=== PATIENT | male | born 1975 | race Caucasian/White ===

== ENCOUNTER 2019-05-04 16:28 | Inpatient (IN) | payer OTHER ==
[~2019-05-04] VITALS: Ht 172.7 cm; Wt 75.7 kg
--- NOTE | ~2019-05-04 | OP ---
[facility] [address] [place] [address] OPERATIVE REPORT Name: CORDELL CAMEJO Room: [place] [address] ADM IN .R.#: [id number] Admission: 05/04/19 Attend Phys: Lynette Parry MD Discharge: Date of : 79 Report #: [id number] THIS REPORT FOR: //name// CC: [facility] physician/PCP Lynette Parry DATE OF SERVICE: 05/04/2019 PREOPERATIVE DIAGNOSES: Right scrotal infection with sepsis. POSTOPERATIVE DIAGNOSES: Right scrotal infection with sepsis with severe epididymal orchitis. PROCEDURE PERFORMED: Right scrotal exploration with right scrotal orchiectomy. SURGEON: Tex Navarro M.D. ESTIMATED BLOOD LOSS: None. DRAINS: Emir drain to the dependent portion of the scrotum. ANESTHETIC: General. BLOOD LOSS: Negligible. SPECIMEN: Testicle and attached cord to pathology. STATEMENT OF MEDICAL INDICATIONS: This is a 43-year-old male who has a 4-day history of scrotal swelling that got dramatically worse today, spiked a temperature to 103.6, has white blood cell count of 20,000. Ultrasound shows decreased blood flow, possible torsion. The patient has been apprised the options of management, elected to proceed with right scrotal exploration and all likelihood, right scrotal orchiectomy. He understands in advance that there is at least a 98% chance this will require orchiectomy and he wants whatever procedure would get him back to activity the fastest and understands this would be orchiectomy. Risks including bleeding, infection, scrotal hematoma hypogonadism were discussed. DESCRIPTION OF PROCEDURE: The patient was taken to the operating room and placed under general anesthesia, prepped and draped in sterile fashion in the supine position. Right hemiscrotal incision was made. There was marked edema of the soft tissues. This was carried down to where there was a reactive hydrocele, which did not appear to be infected. The testis was delivered into the wound. The tail of the epididymis was markedly enlarged and edematous and inflamed. There was blue discoloration of the testis. Therefore, [place] [address] OPERATIVE REPORT Name: CORDELL CAMEJO Room: [address] IN [facility]#: [id number] Admission: 05/04/19 Attend Phys: Lynette Parry MD Discharge: Date of : 79 Report #: [id number] was made to proceed with orchiectomy. There was inflammatory reaction of the testis to the scrotal wall. This was all released using the Bovie. The cord was then doubly clamped and divided. The vas was taken in 1 pedicle of 0 Prolene and doubly ligated and then the vessels were done similarly with a double ligation of 0 Prolene. Careful search for hemostasis was made and obtained. A [place] drain was brought out through the dependent portion of the scrotum and anchored in place using a chromic suture. The scrotum was then closed in 2 layers, dartos and tunica vaginalis were closed with a running 3-0 chromic suture. The wound was irrigated and then the skin was closed using a running 3-0 chromic suture. This concluded the procedure. Sterile dressings were placed and the patient returned to recovery room in satisfactory condition. His sepsis will be managed by the hospitalist. By: 2039 [id number] Navarro MD /syed
[2019-05-04 16:45] VITALS: BP 126/85
[2019-05-04 17:29] LABS: HEMATOCRIT 45.3 % (42.0-52.0); HEMOGLOBIN 16.1 gm/dL (14.0-18.0); MCH 35.8 pg (26.0-34.0); MCHC 35.5 g/dL (28.0-37.0); MPV 7.4 fl. (7.2-11.1); NUCLEATED RBCS 0 /100WBC; PLATELET COUNT* 251 thou/uL (150-400); RBC 4.49 mil/uL (4.50-6.00); RDW-CV 14.2 % (10.5-14.5); WBC 20.7 thou/uL (4.0-11.0)
[2019-05-04 17:38] LABS: CALCIUM 8.4 mg/dL (8.5-10.1); POTASSIUM 3.1 mmol/L (3.5-5.1)
--- NOTE | 2019-05-04 17:41 | NUR ---
TAKEN TO ULTRA SOUND
[2019-05-04 17:43] LABS: ALBUMIN 3.3 g/dL (3.4-5.0); TOTAL BILIRUBIN 0.9 mg/dL (<0.1-1.0); TOTAL PROTEIN 7.6 g/dL (6.4-8.2)
[2019-05-04 17:43] LABS: URINE BILIRUBIN NEGATIVE (Negative); URINE BLOOD NEGATIVE (Negative); URINE COLOR YELLOW; URINE GLUCOSE-RANDOM NEGATIVE (Negative); URINE KETONES NEGATIVE (Negative); URINE LEUKOCYTES-REFLEX TRACE (Negative); URINE NITRITE-REFLEX NEGATIVE (Negative); URINE PROTEIN NEGATIVE (Negative); URINE UROBILINOGEN 0.2 E.U./dl (0.2-1.0)
[2019-05-04 17:44] LABS: URINE CLARITY HAZY
[2019-05-04 17:52] LABS: SQUAMOUS 4-10 Moderate /LPF (0-3); URINE WBC-REFLEX 0-5 Rare /HPF (0-5)
[2019-05-04 17:53] LABS: BACTERIA-REFLEX None Seen /HPF (None Seen); CASTS None Seen /LPF (None Seen); CRYSTALS None Seen /LPF (None Seen); URINE RBC None Seen /HPF (0-2)
[2019-05-04 17:57] LABS: ABSOLUTE LYMPHOCYTES 0.2 thou/uL (0.8-5.3); ABSOLUTE NEUTROPHILS 20.5 thou/uL (1.6-8.1); PLATELET ESTIMATE ADEQUATE
[2019-05-04 19:09] VITALS: BP 104/64
[2019-05-04 23:06] VITALS: BP 98/70
[2019-05-05] VITALS (7 sets, daily range): BP systolic 93–113; BP diastolic 57–75
--- NOTE | 2019-05-05 04:47 | NUR ---
PATIENT ARRIVED TO UNIT AT 2145 FROM PACU. ADMISSION HISTORY AND ASSESSMENT COMPLETED AND CHARTED. VSS ON 4 LITERS 02. FLUIDS AND ANTIBIOTICS INFUSED ORDERED. PAIN MINIMAL AND MANAGED WITH MORPHINE. PATIENT UP TO THE BATHROOM AND VOIDING WIHTOUT ISSUE. DRESSING AND SCROTAL SUPPORT ARE IN PLACE WITH NO DRAINAGE. FATUMA DRAIN IN PLACE WITH MINIMAL DRAINAGE. NO OTHER COMPLAINTS THIS SHIFT. CALL LIGHT PLACED IN REACH. HOURLY ROUNDS COMPLETED. WILL CONTINUE WITH PLAN OF CARE.
[2019-05-05 05:25] LABS: HEMATOCRIT 39.4 % (42.0-52.0); MCH 35.4 pg (26.0-34.0); MCHC 34.6 g/dL (28.0-37.0); MCV 102.5 fL (80.0-100.0); MPV 7.1 fl. (7.2-11.1); RBC 3.85 mil/uL (4.50-6.00); RDW-CV 14.2 % (10.5-14.5); WBC 30.7 thou/uL (4.0-11.0)
[2019-05-05 05:37] LABS: HEMOGLOBIN 13.6 gm/dL (14.0-18.0)
[2019-05-05 05:41] LABS: CALCIUM 7.2 mg/dL (8.5-10.1); CREATININE 0.9 mg/dL (0.6-1.3); MAGNESIUM 1.4 mg/dL (1.8-2.4); POTASSIUM 3.6 mmol/L (3.5-5.1)
--- NOTE | 2019-05-05 08:32 | NUR ---
ASSUMED CARE OF PT THIS AM AROUND 0715- NUCLEAR RADIATION ENGINEER IN PLACE ORDERED, TRACING SR- UPON ASSESSMENT PT NOTED TO BE RESTING IN BED, AT SIDE- PT A&O X4- CONTINENT OF B/B- SBA WITH TRANSFERS FOR SAFETY- LCTA, RESP EVEN AND UN-LABORED, VSS, O2 SAT 93% ON RA- ABD SOFT/ROUND/NON-TENDER, BS X4 QUADS- LAST BM REPORTED THIS AM- RIGHT TEST NOTED WITH GAUZE IN PLACE, MINIMAL DRAINAGE NOTED, STRAP SUPPORT IN PLACE TO JOCK AREA INDICATED-PIN MINERVA DRAIN NOTED TO HAVE BEEN REMOVED THIS AM AT 0830 PER WITH GAUZE CHANGED- MG NOTED AT 1.4 THIS AM AND IS CURRENLTY BEING REPLACED PER PROTOCOL PER IV- IV NOTED TO RIGHT AC INTACT, IVF INFUSSING PRESCIBED- POOR PO INTAKE NOTED THIS AM R/T DECREASED APPETITE PER PT- PT EXPRESSES WISHES TO D/C TO HOME THIS SHIFT- MINIMAL DISCOMFORT REPORTED PER PT TO SCROTUM- CALL LIGHT AND PERSONAL BELONGINGS WITH IN REACH- PT MAKES NEEDS KNOWN- ALL NEEDS MET AT THIS TIME-WCTM
[2019-05-05] MEDS ORDERED: NORCO 5-325 TA1 EAC2 PO (09:02)
[2019-05-05] MEDS ORDERED: KEFLEX500 M1 PO (09:06)
[2019-05-05 12:16] LABS: INFLUENZA A ANTIGEN Negative (Negative); INFLUENZA B ANTIGEN Negative (Negative)
--- NOTE | 2019-05-06 04:36 | NUR ---
ASSUMED CARE OF PATIENT AT APPROX 1930. ALERT AND ORIENTED X4. ASSESSMENT COMPLETED AND CHARTED. VSS ON ROOM AIR. NO COMPLAINTS OF PAIN THROUGHOUT THE NIGHT. ANTIBIOTICS INFUSED ORDERED. PATIENT SLEEPING MOST OF THE NIGHT. UP AD JOSE A TO USE THE BATHROOM. CALL LIGHT IS WITHIN REACH. HOURLY ROUNDING COMPLETED. WILL CONTINUE WITH PLAN OF CARE.
[2019-05-06 05:29] LABS: HEMATOCRIT 41.3 % (42.0-52.0); HEMOGLOBIN 14.3 gm/dL (14.0-18.0); MCH 35.5 pg (26.0-34.0); MCHC 34.5 g/dL (28.0-37.0); MCV 102.9 fL (80.0-100.0); MPV 7.8 fl. (7.2-11.1); RBC 4.02 mil/uL (4.50-6.00); RDW-CV 14.6 % (10.5-14.5); WBC 28.4 thou/uL (4.0-11.0)
[2019-05-06 05:49] LABS: CALCIUM 7.8 mg/dL (8.5-10.1); CREATININE 0.8 mg/dL (0.6-1.3); MAGNESIUM 2.3 mg/dL (1.8-2.4)
[2019-05-06 05:58] LABS: POTASSIUM 2.7 mmol/L (3.5-5.1)
[2019-05-06] MEDS ORDERED: NORCO 5-325 TA1 EAC2 PO (09:31)
[2019-05-06] MEDS ORDERED: LEVAQUIN 500 M500 M3 PO (09:31)
[2019-05-06] MEDS ORDERED: KEFLEX500 M1 PO (09:37)
[2019-05-06 09:38] VITALS: BP 144/91
--- NOTE | 2019-05-06 10:08 | NUR ---
ASSUMED CARE OF PT THIS AM AROUND 07- W/C STATUS IN PLACE INDICATED- UPON ASSESSMENT PT NOTED TO BE RESTING IN BED, AT SIDE- PT A&O X4- CONTINENT OF B/B- LCTA, RESP EVEN AND UN-LABORED- VSS, O2 SAT 92% ON RA- ABD SOFT/ROUND/NON-TENDER, BS X4 QUADS- IV NOTED TO RIGHT AC INTACT- IV ABT D/C WUITH PO STARTED AND 1ST DOSE GIVEN PRESCIBED- PRN IBUPROPHEN GIVEN THIS AM AT 0949 FOR C/O PAIN TO TESTIE- K+ CURRENLTY BEING REPLACED PPER PROTOCOL- D/C ORDERS NOTED- PT MAKES NEEDS KNOWN- ALL NEEDS MET AT THIS TIME-WCTM
--- NOTE | 2019-05-07 14:09 | EKG ---
[place] [address] ELECTROCARDIOGRAM REPORT Name: CORDELL CAMEJO Room: [address] IN [facility].#: [id number] Admission: 05/04/19 Attend Phys: Lynette Parry MD Discharge: 05/06/19 Date of : 79 Report #: [id number] THIS REPORT FOR: //name// [facility] ED Test Date: 2019-05-04 Test Time: 18:31:33 Pat Name: CORDELL CAMEJO Department: Room: [facility] Gender: M Program Checker: : 1975 Requested By: Steve Jeffers Order Number: [id number] MD: Jose Turner Measurements Intervals [place] Rate: 115 P: 54 ME: 136 QRS: -52 QRSD: 88 T: 28 QT: 313 QTc: 433 Interpretive Statements Sinus tachycardia LAD, consider left anterior fascicular block Baseline wander in lead(s) III,V1 No previous ECG available for comparison Electronically Signed On 05-07-2019 14:09:01 BRUSH MAKER MACHINE by Jose Turner [email or web address] <ELECTRONICALLY SIGNED> By: Jose Turner MD, [facility] 05/07/19 1409 [id number] 183 Jose Turner MD, [facility] /EPI
--- NOTE | 2019-05-08 16:06 | PATH ---
[address] [address] PATHOLOGY RPT PROCEDURE Name: AHSAN MAYA Room: [address] IN ..#: [id number] Admission: 05/04/19 Date of : 79 Discharge: 05/06/19 Report #: [id number] Path Case #: [id number] [facility] Accession Number: [id number] . 01 Material submitted: . testis - RIGHT TESTICLE. Modifiers: right . 01 Clinical history: . Pre-op diagnosis: Possible torsion of right testicle Post-op diagnosis: Epididymal orchitis . 02 Diagnosis: Right testicle: - Extensive acute orchitis/epididymitis and acute inflammation of adjacent soft tissues including spermatic cord and vas deferens, negative for malignancy and intratubular germ cell neoplasia. (See comment) (LOLLY/db/mml; 05/08/2019) LBQ 05/08/2019 1242 Local . 02 Comment: Because sections of the testicle show only minimal fresh hemorrhage and congestion, torsion is thought to be unlikely. . (LOLLY:[facility]; 05/08/2019) . 02 Electronically signed: . Usman Eckert MD, Pathologist NPI- [id number] . 01 Gross description: . The specimen is received in formalin, labeled "Ahsan Maya, right testicle". Received is a 65 g orchiectomy specimen consisting of a 6.5 x 4.5 x 3.4 cm testicle and attached spermatic cord measuring 4.2 cm in length by 2.6 cm in diameter. The tunica vaginalis is absent. The tunica albuginea is white-miranda and smooth in appearance. The epididymis is prominent. The specimen is bivalved to reveal a 4.9 x 3.7 x 3.3 cm testis. The parenchyma is light dumont to predominantly pink-red, soft, and viable in appearance. Sectioning reveals no grossly distinct lesions or masses. The epididymis appears congested at the distal aspect. The spermatic cord margin is submitted en face in cassette A1. Additional outside energy sales representatives sections are submitted in cassettes A2 through A5. (CAA; 05/07/2019) QAC/QAC 05/07/2019 1324 Local . 02 Pathologist provided ICD-10: N45.2, N45.1 . [address] [place] [address] PATHOLOGY RPT PROCEDURE Name: AHSAN MAYA Room: [address] IN M.R.#: [id number] Admission: 05/04/19 Date of : 79 Discharge: 05/06/19 Report #: [id number] Path Case #: [id number] CPT . 193619 Specimen Comment: A courtesy copy of this report has been sent to [phone] Specimen Comment: Report sent to Performed at: 01 [facility] [place] [address], [place] [id number] MD Deon Locke MD Phone: [phone] Performed at: 02 [facility] Sally Killian, BENJI [place] [id number] MD Usman Eckert MD Phone: [phone]
== END 2019-05-06 10:50 | disposition home or self-care (01) | DRG 855 ==
LOC: M.ERS 16:28 → M.TBA-ER 18:35 → M.2W 18:35 → M.TBA-ER 18:50 → M.2W 21:45
PROVIDERS: Emergency Medicine; Internal Medicine; ADMIT Internal Medicine
PROC: 0VB90ZZ Excision of Right Testis, Open Approach (ICD-10-PCS; principal; 2019-05-04)
DX: A41.9 Sepsis, unspecified organism (principal); N45.2 Orchitis; D72.829 Elevated white blood cell count, unspecified; E83.42 Hypomagnesemia; I95.2 Hypotension due to drugs; F17.210 Nicotine dependence, cigarettes, uncomplicated; T50.905A Adverse effect of unspecified drugs, medicaments and biological substances, initial encounter; Z88.2 Allergy status to sulfonamides; Y92.89 Other specified places as the place of occurrence of the external cause; Z72.89 Other problems related to lifestyle